=== PATIENT | female | born 1965 | race Caucasian/White ===

== ENCOUNTER 2018-01-28 22:02 | Emergency (ER) | payer OTHER ==
[2018-01-28] MEDS ORDERED: APAP/HYDROCODONE 325/5 TAB PO ONE (22:11)
[2018-01-28 22:30] VITALS: BP 180/93; PULSE 81; RESP 14; TEMP 97; O2SAT 99
[2018-01-28] MEDS ORDERED: APAP/HYDROCODONE 325/5 TAB ONE (22:30)
== END 2018-01-28 22:39 | disposition home or self-care (01) | DRG 159 ==
LOC: ED 22:02
DX: K08.89 Other specified disorders of teeth and supporting structures (principal)
CPT/HCPCS: 99282; 99283; A9270-GY